=== PATIENT | female | born 1980 | race Hispanic/Latino ===

== ENCOUNTER → 2020-12-05 | Outpatient (CLI) | payer OTHER ==
[~2020-12-05] MED LIST: COVID-19 VACC, MRNA(MODERNA)/PF 100 MCG/0.5 ML VIAL IM ONE
== END ==
LOC: VACCPMC 18:45
DX: Z23 Encounter for immunization (principal); Z20.822 Contact with and (suspected) exposure to COVID-19

== ENCOUNTER → 2021-01-02 | Outpatient (CLI) | payer OTHER | END | DRG 951 | LOC: VACCPMC 12:10 | DX: Z23 Encounter for immunization (principal); Z20.822 Contact with and (suspected) exposure to COVID-19 | CPT/HCPCS: 0012A; 91301 ==

== ENCOUNTER 2021-10-29 09:15 | Inpatient (IN) | payer BC ==
[2021-10-27 13:50] LABS: BASOPHILS # (AUTO) 0.1 (0.0-0.1); BASOPHILS % 0.8 % (0.0-1.0); EOSINOPHILS # (AUTO) 0.1 (0.0-0.4); EOSINOPHILS % 1.9 % (0.0-6.0); HEMOGLOBIN 12.3 g/dL (12.0-16.0); LYMPHOCYTES # (AUTO) 2.3 (1.0-3.2); LYMPHOCYTES % 35.9 % (18.0-39.1); MEAN CORPUSCULAR HEMOGLOBIN 28.5 pg (28-32); MEAN CORPUSCULAR HGB CONC 32.4 g/dL (31-35); MEAN CORPUSCULAR VOLUME 88.2 fL (81-99); MONOCYTES # (AUTO) 0.4 (0.2-0.8); MONOCYTES % 6.7 % (4.4-11.3); NEUTROPHILS # (AUTO) 3.4 (2.1-6.9); NEUTROPHILS % 54.5 % (38.7-80.0); PLATELET COUNT 261 x10e3/uL (140-360); RED BLOOD COUNT 4.31 x10e6/uL (3.6-5.1); RED CELL DISTRIBUTION WIDTH 12.9 % (11.7-14.4)
[2021-10-27 14:05] LABS: ANION GAP 12.6 mmol/L (8-16); CALCIUM 8.5 mg/dL (8.4-10.2); CREATININE, SERUM 0.85 mg/dL (0.57-1.11); POTASSIUM 3.6 mmol/L (3.5-5.1)
[~2021-10-29] VITALS: Ht 157.5 cm; Wt 85.3 kg
[~2021-10-29 09:15] MED LIST changes: +BUSPIRONE HCL5 MG PO; +CELEXA20 MG PO; -COVID-19 VACC, MRNA(MODERNA)/PF 100 MCG/0.5 ML VIAL IM ONE; +MONTELUKAST SOD10 MG PO; +NASONEX17 GM; +PANTOPRAZOLE SO40 MG PO; +TOPAMAX100 MG PO; +WELLBUTRIN XL150 MG PO
[2021-10-29] MEDS ORDERED: GENTAMICIN 80MG/NS 100 ML 200 ML IV ONE (10:23)
[2021-10-29] MEDS ORDERED: PIPERACILLIN/TAZOBACTAM 3.375 GM VIAL ONE (10:23)
[2021-10-29] MEDS ORDERED: SODIUM CHLORIDE 0.9% 50ML 50 ML ONE (10:24)
[2021-10-29] MEDS ORDERED: IOPAMIDOL 300MG/ML 50ML INFUS..BTL IV ONE (12:00)
[2021-10-29] MEDS ORDERED: INDIGOTINDISULFONATE SODIUM 8 MG/ML AMP IJ ONE (12:00)
[2021-10-29] MEDS ORDERED: BUPIVACAINE 0.25% 30ML SDV ONE (12:00)
[2021-10-29] MEDS ORDERED: GENTAMICIN SULFATE 40 MG/ML 2 ML VIAL ONE (12:00)
[2021-10-29] MEDS ORDERED: LIDOCAINE 1% W/EPINEPHRINE 20 ML VIAL ONE (12:00)
[2021-10-29] MEDS ORDERED: SILVER SULFADIAZINE 50GM CREAM TOP ONE (12:01)
[2021-10-29] MEDS ORDERED: MIDAZOLAM HCL 2 MG/2 ML VIAL ONE (12:08)
[2021-10-29] MEDS ORDERED: FENTANYL CITRATE/PF 100MCG/2 ML INJ ONE ×2 (12:08→14:18)
[2021-10-29] MEDS ORDERED: SEVOFLURANE INHAL SOLN 250 ML PEN BTL ONE (12:16)
[2021-10-29] MEDS ORDERED: POVIDONE IODINE 0.05% 0.05 % ML PO ONE (12:16)
[2021-10-29] MEDS ORDERED: GLYCOPYRROLATE INJ 0.2 MG/ML VIAL ONE (12:16)
[2021-10-29] MEDS ORDERED: LIDOCAINE HCL 2% LOCAL INJ 5 ML SDV VIAL INJ ONE (12:16)
[2021-10-29] MEDS ORDERED: ONDANSETRON HCL INJ 2MG/ML 2ML 2 MG/ML VIAL ONE (12:16)
[2021-10-29] MEDS ORDERED: KETOROLAC TROMETHAMINE 30 MG/ML VIAL ONE (12:16)
[2021-10-29] MEDS ORDERED: DEXAMETHASONE SOD PHOS INJ 4 MG/ML SDV ONE (12:16)
[2021-10-29] MEDS ORDERED: PHENYLEPHRINE HCL 1% 10 MG/ML VIAL ONE (12:16)
[2021-10-29] MEDS ORDERED: PROPOFOL IV EMULSION 10 MG/ML 20 ML VIAL ONE (12:16)
[2021-10-29] MEDS ORDERED: MORPHINE SULFATE 1 MG/ML 30ML PCA IV PRN (13:45)
[2021-10-29] MEDS ORDERED: PHENAZOPYRIDINE HCL 100 MG TAB PO PRN (13:45)
[2021-10-29] MEDS ORDERED: ONDANSETRON HCL INJ 2MG/ML 2ML 2 MG/ML VIAL IV PRN (13:45)
[2021-10-29] MEDS ORDERED: DIPHENHYDRAMINE HCL 25 MG CAP PO PRN (13:45)
[2021-10-29] MEDS ORDERED: NALOXONE HCL INJ 0.4 MG/ML AMP IV PRN (13:45)
[2021-10-29 14:20] LABS: BASOPHILS # (AUTO) 0.1 (0.0-0.1); BASOPHILS % 0.8 % (0.0-1.0); EOSINOPHILS # (AUTO) 0.1 (0.0-0.4); EOSINOPHILS % 1.3 % (0.0-6.0); HEMATOCRIT 39.3 % (34.2-44.1); HEMOGLOBIN 12.6 g/dL (12.0-16.0); LYMPHOCYTES # (AUTO) 2.6 (1.0-3.2); LYMPHOCYTES % 31.9 % (18.0-39.1); MEAN CORPUSCULAR HEMOGLOBIN 28.8 pg (28-32); MEAN CORPUSCULAR HGB CONC 32.1 g/dL (31-35); MEAN CORPUSCULAR VOLUME 89.7 fL (81-99); MONOCYTES # (AUTO) 0.5 (0.2-0.8); MONOCYTES % 5.9 % (4.4-11.3); NEUTROPHILS # (AUTO) 4.8 (2.1-6.9); NEUTROPHILS % 59.8 % (38.7-80.0); PLATELET COUNT 226 x10e3/uL (140-360); RED BLOOD COUNT 4.38 x10e6/uL (3.6-5.1); RED CELL DISTRIBUTION WIDTH 12.9 % (11.7-14.4)
[2021-10-29 14:45] LABS: CALCIUM 8.9 mg/dL (8.4-10.2); CREATININE, SERUM 0.92 mg/dL (0.57-1.11)
[2021-10-29 15:09] LABS: ANION GAP 11.9 mmol/L (8-16); POTASSIUM 3.9 mmol/L (3.5-5.1)
[2021-10-29 15:35] VITALS: BP 100/65
[2021-10-29 15:36] VITALS: BP 102/70
[2021-10-29 15:39] VITALS: BP 102/70
[2021-10-29 16:05] VITALS: BP 102/70
[2021-10-29] MEDS: D5.45%NS/KCL 20MEQ 1,000 ML IV SCH (16:50)
[2021-10-29] MEDS: DOCUSATE SODIUM 100 MG CAP PO SCH (17:19)
[2021-10-29] MEDS ORDERED: ACETAMINOPHEN 1000 MG/100 ML IV PRN (18:00)
[2021-10-29 20:00] VITALS: BP 87/59
[2021-10-29] MEDS: PIPERACILLIN/TAZOBACTAM 3.375 GM in SODIUM CHLORIDE 0.9% 50ML 50 ML IV SCH (20:11)
[2021-10-30] VITALS (7 sets, daily range): BP systolic 89–109; BP diastolic 41–66
[2021-10-30] MEDS: D5.45%NS/KCL 20MEQ 1,000 ML IV SCH ×4 (00:58→21:42)
[2021-10-30] MEDS: PIPERACILLIN/TAZOBACTAM 3.375 GM in SODIUM CHLORIDE 0.9% 50ML 50 ML IV SCH ×3 (04:00→20:00)
[2021-10-30 05:14] LABS: BASOPHILS % 0.2 % (0.0-1.0); HEMATOCRIT 35.5 % (34.2-44.1); HEMOGLOBIN 11.6 g/dL (12.0-16.0); LYMPHOCYTES # (AUTO) 1.5 (1.0-3.2); LYMPHOCYTES % 8.5 % (18.0-39.1); MEAN CORPUSCULAR HGB CONC 32.7 g/dL (31-35); MEAN CORPUSCULAR VOLUME 88.8 fL (81-99); MONOCYTES # (AUTO) 1.2 (0.2-0.8); MONOCYTES % 6.8 % (4.4-11.3); NEUTROPHILS # (AUTO) 14.3 (2.1-6.9); PLATELET COUNT 231 x10e3/uL (140-360); RED CELL DISTRIBUTION WIDTH 12.7 % (11.7-14.4)
[2021-10-30 05:39] LABS: ANION GAP 11.9 mmol/L (8-16); CREATININE, SERUM 0.76 mg/dL (0.57-1.11); POTASSIUM 3.9 mmol/L (3.5-5.1)
[2021-10-30] MEDS: DOCUSATE SODIUM 100 MG CAP PO SCH ×2 (08:43→18:25)
[2021-10-30] MEDS ORDERED: B&O 60MG R/S 60 MG SUPP PR PRN (08:45)
[2021-10-31] VITALS (7 sets, daily range): BP systolic 95–105; BP diastolic 51–75
[2021-10-31] MEDS: PIPERACILLIN/TAZOBACTAM 3.375 GM in SODIUM CHLORIDE 0.9% 50ML 50 ML IV SCH ×2 (04:50→12:30)
[2021-10-31 05:00] LABS: BASOPHILS % 0.4 % (0.0-1.0); EOSINOPHILS # (AUTO) 0.1 (0.0-0.4); EOSINOPHILS % 1.2 % (0.0-6.0); HEMATOCRIT 34.5 % (34.2-44.1); LYMPHOCYTES # (AUTO) 3.3 (1.0-3.2); LYMPHOCYTES % 31.5 % (18.0-39.1); MEAN CORPUSCULAR HEMOGLOBIN 28.6 pg (28-32); MEAN CORPUSCULAR HGB CONC 31.9 g/dL (31-35); MEAN CORPUSCULAR VOLUME 89.8 fL (81-99); MONOCYTES # (AUTO) 0.9 (0.2-0.8); MONOCYTES % 8.5 % (4.4-11.3); NEUTROPHILS # (AUTO) 6.1 (2.1-6.9); NEUTROPHILS % 58.2 % (38.7-80.0); PLATELET COUNT 227 x10e3/uL (140-360); RED BLOOD COUNT 3.84 x10e6/uL (3.6-5.1)
[2021-10-31 05:28] LABS: ANION GAP 9.7 mmol/L (8-16); CALCIUM 7.9 mg/dL (8.4-10.2); CREATININE, SERUM 0.74 mg/dL (0.57-1.11); POTASSIUM 3.7 mmol/L (3.5-5.1)
[2021-10-31] MEDS: D5.45%NS/KCL 20MEQ 1,000 ML IV SCH ×3 (05:45→21:11)
[2021-10-31] MEDS: DOCUSATE SODIUM 100 MG CAP PO SCH ×2 (08:23→16:48)
[2021-10-31] MEDS: ONDANSETRON HCL 4 MG ORAL DISINTEGRATING TAB PO PRN ×2 (08:36→12:42)
[2021-10-31] MEDS ORDERED: ACETAMINOPHEN 325 MG TAB PO PRN (12:00)
[2021-10-31] MEDS: BUSPIRONE HCL 5 MG TAB PO SCH (12:30)
[2021-10-31] MEDS: CITALOPRAM HYDROBROMIDE 20 MG TAB PO SCH (12:30)
[2021-10-31] MEDS: BUPROPION HCL 150 MG TABCR PO SCH (12:31)
[2021-10-31] MEDS ORDERED: TRAMADOL HCL 50 MG TAB PO PRN (15:00)
[2021-10-31] MEDS ORDERED: ONDANSETRON HCL 4 MG ORAL DISINTEGRATING TAB PO PRN (18:45)
[2021-10-31] MEDS: TOPIRAMATE 100 MG TAB PO SCH (21:12)
[2021-11-01 00:10] VITALS: BP 99/59
[2021-11-01 04:00] VITALS: BP 102/57
[2021-11-01 05:46] LABS: BASOPHILS % 0.4 % (0.0-1.0); EOSINOPHILS # (AUTO) 0.1 (0.0-0.4); EOSINOPHILS % 1.4 % (0.0-6.0); HEMATOCRIT 33.3 % (34.2-44.1); HEMOGLOBIN 10.7 g/dL (12.0-16.0); LYMPHOCYTES % 32.9 % (18.0-39.1); MEAN CORPUSCULAR HEMOGLOBIN 28.6 pg (28-32); MEAN CORPUSCULAR HGB CONC 32.1 g/dL (31-35); MONOCYTES % 10.5 % (4.4-11.3); NEUTROPHILS # (AUTO) 4.9 (2.1-6.9); NEUTROPHILS % 54.4 % (38.7-80.0); PLATELET COUNT 232 x10e3/uL (140-360); RED BLOOD COUNT 3.74 x10e6/uL (3.6-5.1); RED CELL DISTRIBUTION WIDTH 12.8 % (11.7-14.4)
[2021-11-01 06:00] LABS: ANION GAP 10.8 mmol/L (8-16); CREATININE, SERUM 0.75 mg/dL (0.57-1.11); POTASSIUM 3.8 mmol/L (3.5-5.1)
[2021-11-01] MEDS: PANTOPRAZOLE SOD 40 MG TABEC PO SCH ×3 (06:39→10:04)
[2021-11-01 08:53] VITALS: BP 89/71
[2021-11-01] MEDS ORDERED: MONTELUKAST SODIUM 10 MG TAB PO SCH (09:00)
[2021-11-01] MEDS ORDERED: FLUTICASONE PROPIONATE NASAL SPRAY NS SCH (09:00)
[2021-11-01] MEDS: CITALOPRAM HYDROBROMIDE 20 MG TAB PO SCH (10:03)
[2021-11-01] MEDS: BUSPIRONE HCL 5 MG TAB PO SCH (10:03)
[2021-11-01] MEDS: DOCUSATE SODIUM 100 MG CAP PO SCH (10:03)
[2021-11-01] MEDS: TOPIRAMATE 100 MG TAB PO SCH (10:04)
[2021-11-01] MEDS: BUPROPION HCL 150 MG TABCR PO SCH (10:05)
[2021-11-01 13:05] VITALS: BP 93/54
[2021-11-01] MEDS ORDERED: ULTRAM50 MG PO (15:05)
[2021-11-01] MEDS ORDERED: LEVOFLOXACIN250 MG PO (15:06)
[2021-11-01] MEDS ORDERED: ZOFRAN4 MG PO (15:06)
== END 2021-11-01 16:45 | disposition home or self-care (01) | DRG 748 ==
LOC: OR 09:15 → PACU V 13:44 → MED/SURG 14:45
PROVIDERS: ADMIT Urology; ATTEND Urology
PROC: BT141ZZ Fluoroscopy of Kidneys, Ureters and Bladder using Low Osmolar Contrast (ICD-10-PCS; 2021-10-29)
PROC: 0JUC0KZ Supplement of Pelvic Region Subcutaneous Tissue and Fascia with Nonautologous Tissue Substitute, Open Approach (ICD-10-PCS; principal; 2021-10-29 11:00)
PROC: 0TSD0ZZ Reposition Urethra, Open Approach (ICD-10-PCS; 2021-10-29 11:00)
DX: N81.3 Complete uterovaginal prolapse (principal); N13.30 Unspecified hydronephrosis; N81.89 Other female genital prolapse; K21.9 Gastro-esophageal reflux disease without esophagitis; Z87.891 Personal history of nicotine dependence; J45.909 Unspecified asthma, uncomplicated; F41.9 Anxiety disorder, unspecified; N39.46 Mixed incontinence; R35.1 Nocturia; N36.41 Hypermobility of urethra; N32.81 Overactive bladder; E66.9 Obesity, unspecified; Z68.34 Body mass index [BMI] 34.0-34.9, adult; F32.A Depression, unspecified
CPT/HCPCS: 36415; 74420; 80048; 83735; 85025; 94799; C1752; J1100; J1580; J1885; J2001; J2250; J2270; J2370; J2405; J2543; J3010; Q0162; U0002

== ENCOUNTER 2022-04-18 15:02 | Emergency (ER) | payer BC, OTHER ==
[~2022-04-18] VITALS: Ht 167.6 cm; Wt 90.7 kg
[~2022-04-18 15:02] MED LIST changes: +LEVOFLOXACIN250 MG PO; +ULTRAM50 MG PO; +ZOFRAN4 MG PO
[2022-04-18] MEDS ORDERED: IBUPROFEN 600 MG TAB PO NR (15:21)
[2022-04-18] MEDS ORDERED: ACETAMINOPHEN-1 EAC4 PO (16:25)
== END 2022-04-18 16:57 | disposition home or self-care (01) ==
LOC: FSED 15:10
DX: S92.422A Displaced fracture of distal phalanx of left great toe, initial encounter for closed fracture (principal); W20.8XXA Other cause of strike by thrown, projected or falling object, initial encounter; Y92.89 Other specified places as the place of occurrence of the external cause; F41.9 Anxiety disorder, unspecified; F32.A Depression, unspecified
CPT/HCPCS: 99283

== ENCOUNTER 2022-08-16 17:08 | Emergency (ER) | payer BC, OTHER ==
[~2022-08-16] VITALS: Ht 157.5 cm; Wt 92.2 kg
[~2022-08-16 17:08] MED LIST changes: +ACETAMINOPHEN-1 EAC4 PO
[2022-08-16] MEDS ORDERED: PROVENTIL HFA6.7 GM INH (17:32)
[2022-08-16] MEDS ORDERED: IBUPROFEN200 MG PO (18:17)
[2022-08-16] MEDS ORDERED: ACETAMINOPHEN500 MG PO (18:17)
== END 2022-08-16 18:33 | disposition home or self-care (01) ==
LOC: FSED 17:34
DX: S93.691A Other sprain of right foot, initial encounter (principal); W01.0XXA Fall on same level from slipping, tripping and stumbling without subsequent striking against object, initial encounter; Y93.01 Activity, walking, marching and hiking; Y92.89 Other specified places as the place of occurrence of the external cause; F31.9 Bipolar disorder, unspecified; F41.9 Anxiety disorder, unspecified; G25.81 Restless legs syndrome
CPT/HCPCS: 99283

== ENCOUNTER 2024-08-21 08:37 | Emergency (ER) | payer BC ==
[~2024-08-21] VITALS: Ht 157.5 cm; Wt 81.6 kg
[~2024-08-21 08:37] MED LIST changes: +ACETAMINOPHEN500 MG PO; +IBUPROFEN200 MG PO; +PROVENTIL HFA6.7 GM INH
[2024-08-21 08:55] VITALS: PULSE 78; RESP 18; TEMP 98; O2SAT 98
[2024-08-21] MEDS ORDERED: CEPHALEXIN500 MG PO (09:15)
[2024-08-21] MEDS: CEPHALEXIN MONOHYDRATE 250 MG CAP PO ONE (09:25)
[2024-08-21] MEDS: TETANUS/DIPHTHERIA TOX ADULT 0.5 ML SYR IM ONE (09:27)
== END 2024-08-21 09:35 | disposition home or self-care (01) ==
LOC: FSED 08:48
DX: L03.115 Cellulitis of right lower limb (principal); S80.861A Insect bite (nonvenomous), right lower leg, initial encounter; G25.81 Restless legs syndrome; F41.9 Anxiety disorder, unspecified; F31.9 Bipolar disorder, unspecified
CPT/HCPCS: 90471; 90714; 99283